=== PATIENT | male | born 1955 ===

== ENCOUNTER 2021-06-09 07:42 | Inpatient (IN) | payer MEDICAID, OTHER ==
[~2021-06-09] VITALS: Ht 188 cm; Wt 126.1 kg
[2021-06-09] MEDS ORDERED: SODIUM CHLORIDE 0.9% 1,000 ML IV ONE (08:15)
[2021-06-09] MEDS ORDERED: LABETALOL HCL 5 MG/ML 4ML SYRINGE IV ONE (08:15)
[2021-06-09 08:51] LABS: Urine Bacteria FEW /hpf (None Seen); Urine Blood 1+ /uL (Negative); Urine Hyaline Cast MANY /lpf (0 - 2); Urine Mucus FEW (None Seen); Urine Specific Gravity 1.026 (1.001-1.035); Urine WBC 9 /hpf (0 - 3)
[2021-06-09 08:54] LABS: Basophils # (auto) 0.1 10 ^3/uL (0-0.2); Eosinophils # (auto) 0.1 10 ^3/uL (0-0.8); Eosinophils % (auto) 0.4 % (0.0-7.0); Hemoglobin 13.2 g/dL (13.5-17.5); Lymphocytes # (auto) 1.3 10 ^3/uL (0.4-5.4); Monocytes # (auto) 0.8 10 ^3/uL (0-1.3)
[2021-06-09 08:55] LABS: Basophils % (auto) 0.3 % (0.0-2.0); Hematocrit 41.4 % (41.0-53.0); Lymphocytes % (auto) 5.6 % (10.0-50.0); Mean Corpuscular Hemoglobin 24.5 pg (28.0-32.0); Mean Corpuscular Volume 76.6 fL (80.0-100.0); Monocytes % (auto) 3.7 % (0.0-12.0); Neutrophils # (auto) 20.2 10 ^3/uL (1.6-8.6); Red Cell Distribution Width 17.5 % (11.8-14.3); White Blood Cell 22.4 10^3/uL (4.4-10.8)
[2021-06-09 09:07] LABS: Partial Thromboplastin Time 20.8 sec (23.6-33.0)
[2021-06-09 09:08] LABS: Calcium 8.9 mg/dL (8.5-10.1); Magnesium 2.5 mg/dL (1.6-2.6); Potassium 3.9 mmol/L (3.5-5.1)
[2021-06-09 09:11] LABS: BUN/Creatinine Ratio 16.5; Bilirubin, Total 0.4 mg/dL (0.2-1.0); Total Protein 8.8 g/dL (6.4-8.2)
[2021-06-09] MEDS ORDERED: SPIRONOLACTONE 25 MG TAB PO ONE (11:00)
[2021-06-09] MEDS ORDERED: FUROSEMIDE 40 MG/4 ML VIAL IV ONE (11:00)
[2021-06-09] MEDS ORDERED: METOPROLOL TARTRATE 1MG/1ML-5ML VIAL IV ONE (11:15)
[2021-06-09] MEDS ORDERED: amLODIPine BESYLATE 5 MG TAB PO ONE (14:45)
[2021-06-09] MEDS ORDERED: NITROGLYCERIN 0.4 MG SL TAB SL PRN (14:45)
[2021-06-09] MEDS ORDERED: IPRATROPIUM BROM 0.5 MG/2.5ML INH SOL NEB PRN (14:45)
[2021-06-09] MEDS ORDERED: methylPREDNISolone SOD SUCC 125 MG/2 ML VL IV ONE (14:45)
[2021-06-09] MEDS ORDERED: ALBUTEROL SULF 2.5 MG/0.5ML(0.5%) NEB SOLN NEB PRN (14:45)
[2021-06-09] MEDS ORDERED: hydrALAZINE HCL 20 MG/ML VL IV PRN (14:45)
[2021-06-09] MEDS ORDERED: MORPHINE SULFATE INJECTION 2 MG/ML SYRG IV PRN (14:45)
[2021-06-09 15:00] VITALS: BP 126/96
[2021-06-09] MEDS ORDERED: IPRATROPIUM BROM 0.5 MG/2.5ML INH SOL NEB ONE (15:00)
[2021-06-09] MEDS ORDERED: ALBUTEROL SULF 2.5 MG/0.5ML(0.5%) NEB SOLN NEB ONE (15:00)
[2021-06-09] MEDS: cefTRIAXone 1GM/50ML D5W 50 ML IV SCH (15:24)
[2021-06-09] MEDS ORDERED: ONDANSETRON HCL 4 MG/2 ML VIAL IV PRN (17:45)
[2021-06-09] MEDS: PROMETHAZINE W/CODEINE 5 ML ORAL SYRUP PO PRN (18:00)
[2021-06-09] MEDS ORDERED: IPRATROPIUM BROM 0.5 MG/2.5ML INH SOL NEB SCH (18:00)
[2021-06-09] MEDS: ACETAMINOPHEN 500 MG TAB PO PRN (18:01)
[2021-06-09] MEDS: ALBUTEROL SULF 2.5 MG/0.5ML(0.5%) NEB SOLN NEB SCH ×2 (18:38→22:58)
[2021-06-09] MEDS: IPRATROPIUM BROM 0.5 MG/2.5ML INH SOL NEB SCH ×2 (18:38→22:58)
[2021-06-09 22:25] VITALS: BP 145/74
[2021-06-09] MEDS: metroNIDAZOLE 500MG/100ML 100 ML IV SCH (23:14)
[2021-06-10] MEDS: PROMETHAZINE W/CODEINE 5 ML ORAL SYRUP PO PRN (00:28)
[2021-06-10] MEDS ORDERED: FURO1TAB31 PO (02:51)
[2021-06-10] MEDS ORDERED: LISI-275 PO (02:58)
[2021-06-10] MEDS ORDERED: METO25TA93 PO (02:58)
[2021-06-10] MEDS ORDERED: ALBUAER3 IN (02:58)
[2021-06-10] MEDS ORDERED: FLUT250M2 INH (02:58)
[2021-06-10] MEDS ORDERED: HYDR25TA4 PO (03:04)
[2021-06-10] MEDS ORDERED: AMLO-489 PO (03:04)
[2021-06-10] MEDS ORDERED: LOSA-39 PO (03:04)
[2021-06-10] MEDS ORDERED: MONT-8 PO (03:04)
[2021-06-10] MEDS ORDERED: PYRI1TAB3 PO (03:04)
[2021-06-10] MEDS: metroNIDAZOLE 500MG/100ML 100 ML IV SCH ×3 (05:06→21:31)
[2021-06-10 05:26] VITALS: BP 127/68
[2021-06-10 05:55] LABS: Basophils # (auto) 0 10 ^3/uL (0-0.2); Basophils % (auto) 0.6 % (0.0-2.0); Eosinophils # (auto) 0.2 10 ^3/uL (0-0.8); Eosinophils % (auto) 3.3 % (0.0-7.0); Hematocrit 30.1 % (41.0-53.0); Hemoglobin 10.2 g/dL (13.5-17.5); Lymphocytes # (auto) 0.9 10 ^3/uL (0.4-5.4); Lymphocytes % (auto) 17.1 % (10.0-50.0); Mean Corpuscular Hemoglobin 32.2 pg (28.0-32.0); Mean Corpuscular Hgb Conc. 33.7 g/dL (32.0-36.0); Mean Corpuscular Volume 95.4 fL (80.0-100.0); Monocytes # (auto) 0.8 10 ^3/uL (0-1.3); Monocytes % (auto) 14.5 % (0.0-12.0); Neutrophils # (auto) 3.5 10 ^3/uL (1.6-8.6); Neutrophils % (auto) 64.5 % (37.0-80.0); Red Blood Cells 3.16 10^6/uL (4.5-5.90); Red Cell Distribution Width 12.9 % (11.8-14.3); White Blood Cell 5.4 10^3/uL (4.4-10.8)
[2021-06-10] MEDS: IPRATROPIUM BROM 0.5 MG/2.5ML INH SOL NEB SCH ×5 (06:00→22:18)
[2021-06-10] MEDS: ALBUTEROL SULF 2.5 MG/0.5ML(0.5%) NEB SOLN NEB SCH ×5 (06:00→22:18)
[2021-06-10 06:17] LABS: Albumin 2.8 g/dL (3.4-5.0); Calcium 8.5 mg/dL (8.5-10.1); Potassium 3.7 mmol/L (3.5-5.1)
[2021-06-10 06:24] LABS: BUN/Creatinine Ratio 18.7; Bilirubin, Total 0.7 mg/dL (0.2-1.0); Total Protein 6.2 g/dL (6.4-8.2)
[2021-06-10 08:48] VITALS: BP 131/91
[2021-06-10] MEDS: NICOTINE 14 MG/24HR TOPICAL PATCH TD SCH (09:10)
[2021-06-10] MEDS: cefTRIAXone 1GM/50ML D5W 50 ML IV SCH (09:10)
[2021-06-10 12:51] VITALS: BP 151/83
[2021-06-10] MEDS: ACETAMINOPHEN 500 MG TAB PO PRN (15:31)
[2021-06-10 16:47] VITALS: BP 138/91
[2021-06-10] MEDS: METOPROLOL TARTRATE 25 MG TAB PO SCH (21:31)
[2021-06-10 22:25] VITALS: BP 115/54
[2021-06-10 23:19] LABS: Alcohol, Urine < 3.0 mg/dL (0-10); Amphetamine Screen, Urine NEGATIVE (NEGATIVE); Barbiturate Scree,Urine NEGATIVE (NEGATIVE); Benzodiazephine Screen, Urine NEGATIVE (NEGATIVE); Cannabinoid Screen, Urine NEGATIVE (NEGATIVE); Cocaine Screen, Urine NEGATIVE (NEGATIVE); Opiate Scree,Urine NEGATIVE (NEGATIVE); Phencyclidine Screen, Urine NEGATIVE (NEGATIVE)
[2021-06-11 05:25] VITALS: BP 137/73
[2021-06-11 06:01] LABS: Hemoglobin 11.6 g/dL (13.5-17.5)
[2021-06-11 06:04] LABS: Basophils # (auto) 0.1 10 ^3/uL (0-0.2); Basophils % (auto) 0.4 % (0.0-2.0); Eosinophils # (auto) 0 10 ^3/uL (0-0.8); Eosinophils % (auto) 0.3 % (0.0-7.0); Hematocrit 36.1 % (41.0-53.0); Lymphocytes % (auto) 15.5 % (10.0-50.0); Mean Corpuscular Hemoglobin 24.8 pg (28.0-32.0); Mean Corpuscular Hgb Conc. 32.2 g/dL (32.0-36.0); Mean Corpuscular Volume 77.2 fL (80.0-100.0); Monocytes # (auto) 0.6 10 ^3/uL (0-1.3); Monocytes % (auto) 4.5 % (0.0-12.0); Neutrophils # (auto) 10.4 10 ^3/uL (1.6-8.6); Neutrophils % (auto) 79.3 % (37.0-80.0); Red Blood Cells 4.67 10^6/uL (4.5-5.90); Red Cell Distribution Width 17.8 % (11.8-14.3); White Blood Cell 13.2 10^3/uL (4.4-10.8)
[2021-06-11 06:19] LABS: BUN/Creatinine Ratio 25.6; Calcium 8.6 mg/dL (8.5-10.1); Magnesium 2.3 mg/dL (1.6-2.6); Potassium 3.9 mmol/L (3.5-5.1)
[2021-06-11] MEDS: metroNIDAZOLE 500MG/100ML 100 ML IV SCH ×3 (06:31→22:36)
[2021-06-11] MEDS: PROMETHAZINE W/CODEINE 5 ML ORAL SYRUP PO PRN ×2 (06:41→18:54)
[2021-06-11] MEDS: ACETAMINOPHEN 500 MG TAB PO PRN ×2 (06:41→18:54)
[2021-06-11] MEDS: IPRATROPIUM BROM 0.5 MG/2.5ML INH SOL NEB SCH ×6 (07:07→21:39)
[2021-06-11] MEDS: ALBUTEROL SULF 2.5 MG/0.5ML(0.5%) NEB SOLN NEB SCH ×6 (07:07→21:39)
[2021-06-11 09:00] VITALS: BP 124/66
[2021-06-11] MEDS: METOPROLOL TARTRATE 25 MG TAB PO SCH ×2 (09:50→22:36)
[2021-06-11] MEDS: amLODIPine BESYLATE 5 MG TAB PO SCH (09:52)
[2021-06-11] MEDS: cefTRIAXone 1GM/50ML D5W 50 ML IV SCH (09:53)
[2021-06-11] MEDS: NICOTINE 14 MG/24HR TOPICAL PATCH TD SCH (10:00)
[2021-06-11 13:00] VITALS: BP 111/66
[2021-06-11 17:00] VITALS: BP 126/82
[2021-06-11 22:00] VITALS: BP 115/50
[2021-06-12 05:00] VITALS: BP 136/64
[2021-06-12] MEDS: metroNIDAZOLE 500MG/100ML 100 ML IV SCH (06:03)
[2021-06-12] MEDS: ALBUTEROL SULF 2.5 MG/0.5ML(0.5%) NEB SOLN NEB SCH ×5 (06:21→22:19)
[2021-06-12] MEDS: IPRATROPIUM BROM 0.5 MG/2.5ML INH SOL NEB SCH ×5 (06:21→22:20)
[2021-06-12 07:17] LABS: Basophils # (auto) 0 10 ^3/uL (0-0.2); Eosinophils # (auto) 0.1 10 ^3/uL (0-0.8); Hemoglobin 12.3 g/dL (13.5-17.5)
[2021-06-12 07:19] LABS: Basophils % (auto) 0.3 % (0.0-2.0); Hematocrit 37.3 % (41.0-53.0); Lymphocytes # (auto) 1.7 10 ^3/uL (0.4-5.4); Lymphocytes % (auto) 16.4 % (10.0-50.0); Mean Corpuscular Hemoglobin 25.4 pg (28.0-32.0); Mean Corpuscular Volume 76.9 fL (80.0-100.0); Monocytes # (auto) 0.6 10 ^3/uL (0-1.3); Monocytes % (auto) 6.1 % (0.0-12.0); Neutrophils # (auto) 7.9 10 ^3/uL (1.6-8.6); Neutrophils % (auto) 76.2 % (37.0-80.0); Red Blood Cells 4.85 10^6/uL (4.5-5.90); Red Cell Distribution Width 17.6 % (11.8-14.3); White Blood Cell 10.3 10^3/uL (4.4-10.8)
[2021-06-12] MEDS: cefTRIAXone 1GM/50ML D5W 50 ML IV SCH (09:14)
[2021-06-12 09:15] VITALS: BP 154/75
[2021-06-12] MEDS: METOPROLOL TARTRATE 25 MG TAB PO SCH ×2 (09:15→22:58)
[2021-06-12] MEDS: amLODIPine BESYLATE 5 MG TAB PO SCH (09:16)
[2021-06-12] MEDS: ACETAMINOPHEN 500 MG TAB PO PRN (09:16)
[2021-06-12] MEDS: PROMETHAZINE W/CODEINE 5 ML ORAL SYRUP PO PRN ×3 (09:17→22:47)
[2021-06-12] MEDS: NICOTINE 14 MG/24HR TOPICAL PATCH TD SCH (10:00)
[2021-06-12 12:30] VITALS: BP 132/68
[2021-06-12] MEDS ORDERED: AZITHROMYCIN 250 MG TAB PO ONE (12:45)
[2021-06-12] MEDS ORDERED: CHOLECALCIFEROL (VITD3) 2,000 UNIT CAP/TAB PO ONE (12:45)
[2021-06-12 13:42] VITALS: BP 156/70
[2021-06-12 17:00] VITALS: BP 162/76
[2021-06-12 22:00] VITALS: BP 101/69
[2021-06-12] MEDS: ATORVASTATIN 20 MG TAB PO SCH (22:47)
[2021-06-12] MEDS: HYDROcodone-ACET 5/325MG TAB PO PRN (22:55)
[2021-06-13 04:43] VITALS: BP 136/84
[2021-06-13] MEDS: IPRATROPIUM BROM 0.5 MG/2.5ML INH SOL NEB SCH ×6 (06:00→22:12)
[2021-06-13] MEDS: ALBUTEROL SULF 2.5 MG/0.5ML(0.5%) NEB SOLN NEB SCH ×6 (06:00→22:12)
[2021-06-13 08:59] LABS: Calcium 8.7 mg/dL (8.5-10.1); Potassium 4.1 mmol/L (3.5-5.1)
[2021-06-13 09:01] LABS: BUN/Creatinine Ratio 15.1; Basophils # (auto) 0 10 ^3/uL (0-0.2); Eosinophils # (auto) 0.1 10 ^3/uL (0-0.8); Hemoglobin 12.9 g/dL (13.5-17.5); Lymphocytes # (auto) 1.1 10 ^3/uL (0.4-5.4); Red Cell Distribution Width 17.4 % (11.8-14.3)
[2021-06-13 09:08] LABS: Basophils % (auto) 0.3 % (0.0-2.0); Eosinophils % (auto) 1.1 % (0.0-7.0); Hematocrit 38.2 % (41.0-53.0); Mean Corpuscular Hemoglobin 25.7 pg (28.0-32.0); Mean Corpuscular Hgb Conc. 33.7 g/dL (32.0-36.0); Mean Corpuscular Volume 76.4 fL (80.0-100.0); Monocytes # (auto) 0.8 10 ^3/uL (0-1.3); Monocytes % (auto) 7.5 % (0.0-12.0); Neutrophils # (auto) 8.2 10 ^3/uL (1.6-8.6); Neutrophils % (auto) 80.1 % (37.0-80.0); Red Blood Cells 4.99 10^6/uL (4.5-5.90); White Blood Cell 10.3 10^3/uL (4.4-10.8)
[2021-06-13] MEDS: NICOTINE 14 MG/24HR TOPICAL PATCH TD SCH (10:00)
[2021-06-13] MEDS ORDERED: AZITHROMYCIN 250 MG TAB PO SCH (10:00)
[2021-06-13] MEDS: CHOLECALCIFEROL (VITD3) 2,000 UNIT CAP/TAB PO SCH (10:17)
[2021-06-13] MEDS: amLODIPine BESYLATE 5 MG TAB PO SCH (10:17)
[2021-06-13] MEDS: MORPHINE SULFATE INJECTION 2 MG/ML SYRG IV PRN ×2 (10:19→16:36)
[2021-06-13] MEDS: METOPROLOL TARTRATE 25 MG TAB PO SCH ×2 (10:21→22:10)
[2021-06-13] MEDS: PROMETHAZINE W/CODEINE 5 ML ORAL SYRUP PO PRN ×3 (10:22→23:21)
[2021-06-13 13:00] VITALS: BP 117/75
[2021-06-13 17:00] VITALS: BP 124/79
[2021-06-13 20:00] VITALS: BP 127/76
[2021-06-13 22:00] VITALS: BP 127/76
[2021-06-13] MEDS: ATORVASTATIN 20 MG TAB PO SCH (22:09)
[2021-06-13] MEDS: HYDROcodone-ACET 5/325MG TAB PO PRN (23:21)
[2021-06-14] VITALS (7 sets, daily range): BP systolic 117–141; BP diastolic 66–71
[2021-06-14] MEDS: IPRATROPIUM BROM 0.5 MG/2.5ML INH SOL NEB SCH ×3 (06:25→14:08)
[2021-06-14] MEDS: ALBUTEROL SULF 2.5 MG/0.5ML(0.5%) NEB SOLN NEB SCH ×3 (06:25→14:08)
[2021-06-14] MEDS: HYDROcodone-ACET 5/325MG TAB PO PRN (08:55)
[2021-06-14] MEDS: PROMETHAZINE W/CODEINE 5 ML ORAL SYRUP PO PRN (08:56)
[2021-06-14] MEDS: CHOLECALCIFEROL (VITD3) 2,000 UNIT CAP/TAB PO SCH (09:28)
[2021-06-14] MEDS: amLODIPine BESYLATE 5 MG TAB PO SCH (09:29)
[2021-06-14] MEDS: NICOTINE 14 MG/24HR TOPICAL PATCH TD SCH (09:30)
[2021-06-14] MEDS: METOPROLOL TARTRATE 25 MG TAB PO SCH (09:30)
[2021-06-14] MEDS ORDERED: DOXYCYCLINE 100 MG TAB/CAP PO SCH (10:00)
[2021-06-14] MEDS ORDERED: METO25TA93 PO (11:38)
[2021-06-14] MEDS ORDERED: ALBUAER3 IN (11:38)
[2021-06-14] MEDS ORDERED: DOXY-286 PO (11:38)
[2021-06-14] MEDS ORDERED: ATOR20TA PO (11:38)
[2021-06-14] MEDS ORDERED: LISI-275 PO (11:38)
[2021-06-14] MEDS ORDERED: CHOL20007 PO (11:38)
[2021-06-14] MEDS ORDERED: HYDR25TA4 PO (11:38)
[2021-06-14] MEDS ORDERED: DEXT1SYP9 PO (11:38)
[2021-06-14] MEDS ORDERED: METF-370 PO (11:44)
== END 2021-06-14 17:10 | disposition home or self-care (01) | DRG 140 ==
LOC: EDBD 07:42 → ER 07:42 → TELE 14:38 → TELE-WESTW 20:40
PROVIDERS: ADMIT Nurse Practitioner Acute Care; ATTEND Internal Medicine
DX: J44.1 Chronic obstructive pulmonary disease with (acute) exacerbation (principal); J96.00 Acute respiratory failure, unspecified whether with hypoxia or hypercapnia; I11.0 Hypertensive heart disease with heart failure; R65.10 Systemic inflammatory response syndrome (SIRS) of non-infectious origin without acute organ dysfunction; I50.9 Heart failure, unspecified; Z20.822 Contact with and (suspected) exposure to COVID-19; E11.65 Type 2 diabetes mellitus with hyperglycemia; E55.9 Vitamin D deficiency, unspecified; R19.7 Diarrhea, unspecified; J44.0 Chronic obstructive pulmonary disease with (acute) lower respiratory infection; J20.9 Acute bronchitis, unspecified; E66.9 Obesity, unspecified; Z96.642 Presence of left artificial hip joint; F32.A Depression, unspecified; F41.1 Generalized anxiety disorder; E78.5 Hyperlipidemia, unspecified; F17.210 Nicotine dependence, cigarettes, uncomplicated; J98.11 Atelectasis; Z59.00 Homelessness unspecified; Z91.19 Patient's noncompliance with other medical treatment and regimen; Z71.6 Tobacco abuse counseling; Z68.36 Body mass index [BMI] 36.0-36.9, adult
CPT/HCPCS: 36415; 71045; 71250; 74018; 80048; 80053; 80061; 80307; 81001; 82306; 83036; 83735; 83880; 84443; 84484; 85025; 85379; 85610; 85730; 87040; 87045; 87426; 87427; 93005; 93306; 94640; 96361; 96374; 96375; G0378; J0696; J3490